=== PATIENT | female | born 1990 | race Caucasian/White ===

== ENCOUNTER 2016-12-05 07:45 | Inpatient (IN) | payer MEDICAID, OTHER ==
[~2016-12-05] VITALS: Ht 160 cm; Wt 53.4 kg
[~2016-12-05 07:45] MED LIST: DIVA250T4 PO; RISP1TAB54 PO; SERT50TA12 PO
[2016-12-05] MEDS ORDERED: HALOPERIDOL 5 MG TABLET PO PRN (08:45)
[2016-12-05] MEDS ORDERED: DiphenhydrAMINE HCL 50 MG/ML VIAL IM ONE (08:45)
[2016-12-05] MEDS ORDERED: LORazepam 2 MG/ML VIAL IM ONE (08:45)
[2016-12-05] MEDS ORDERED: ZOLPIDEM TARTRATE 10 MG TABLET PO PRN (08:45)
[2016-12-05] MEDS ORDERED: LORazepam 2 MG TABLET PO PRN (08:45)
[2016-12-05] MEDS ORDERED: HALOPERIDOL LACTATE 5 MG/ML VIAL IM ONE (08:45)
[2016-12-05 10:03] LABS: BASOPHILS # (AUTO) 0.03 K/uL (0.00-0.20); BASOPHILS % (AUTO) 0.3 % (0.0-2.0); EOSINOPHILS # (AUTO) 0.01 K/uL (0.00-0.70); EOSINOPHILS % (AUTO) 0.09 % (1.0-6.0); HEMATOCRIT 36.8 % (36-46); HEMOGLOBIN 12.6 g/dL (12.0-16.0); LYMPHOCYTES # (AUTO) 1.5 K/uL (1.0-4.8); LYMPHOCYTES % (AUTO) 16.7 % (22.0-44.0); MEAN CORPUSCULAR HEMOGLOBIN 29.9 pg (26.0-34.0); MEAN CORPUSCULAR HGB CONC 34.2 G/dL (31.0-37.0); MEAN CORPUSCULAR VOLUME 87 fL (80-100); MONOCYTES # (AUTO) 0.5 K/uL (0.1-1.0); MONOCYTES % (AUTO) 5.2 % (2.0-9.0); NEUTROPHILS # (AUTO) 7.1 K/uL (1.8-7.7); NEUTROPHILS % (AUTO) 77.7 % (40.0-70.0); PLATELET COUNT (AUTO) 213 K/uL (150-450); RED BLOOD CELL COUNT(AUTO) 4.22 MIL/uL (4.00-5.20); RED CELL DISTRIBUTION WIDTH 12.8 % (11.5-14.5); WHITE BLOOD COUNT (AUTO) 9.1 K/uL (4.5-11.0)
[2016-12-05 10:11] LABS: ANION GAP 10 mmol/L (8-16); CALCIUM, TOTAL 8.6 mg/dL (8.8-10.5); CARBON DIOXIDE 26 mmol/L (22-29); CHLORIDE 107 mmol/L (98-107); CREATININE 0.77 mg/dL (0.60-1.30); GLOMERULAR FILTR. RATE CALC > 60 mL/min (>60); POTASSIUM 3.9 mmol/L (3.5-5.1); SODIUM SERUM 143 mmol/L (136-145); UREA NITROGEN, BLOOD 12 mg/dL (7-18)
[2016-12-05 10:22] LABS: ALANINE AMINOTRANSFERASE 18 U/L (12-78); ALBUMIN 3.7 g/dL (3.4-5.0); ASPARTATE AMINOTRANSFERASE 20 U/L (15-37); BILIRUBIN,TOTAL 0.6 mg/dL (0.1-1.0); TOTAL PROTEIN, SERUM 6.8 g/dL (6.4-8.2)
[2016-12-05 10:41] LABS: VALPROIC ACID < 3 mcg/mL (50-100)
[2016-12-05] MEDS ORDERED: DIVA500T35 PO (14:22)
[2016-12-05 16:00] VITALS: BP 112/71
[2016-12-05] MEDS: RisperiDONE 1 MG TABLET PO SCH (17:00)
[2016-12-05] MEDS: DIVALPROEX SODIUM 500 MG DR TABLET PO SCH (17:00)
[2016-12-06] MEDS: RisperiDONE 1 MG TABLET PO SCH ×2 (13:18→16:15)
[2016-12-06] MEDS: DIVALPROEX SODIUM 500 MG DR TABLET PO SCH ×2 (13:18→16:15)
[2016-12-07] MEDS: RisperiDONE 1 MG TABLET PO SCH ×2 (09:00→16:35)
[2016-12-07] MEDS: DIVALPROEX SODIUM 500 MG DR TABLET PO SCH ×2 (09:00→16:35)
[2016-12-07] MEDS ORDERED: ACETAMINOPHEN 325 MG TABLET PO PRN (14:45)
[2016-12-07] MEDS ORDERED: IBUPROFEN 600 MG TABLET PO PRN (14:45)
[2016-12-08] MEDS: DIVALPROEX SODIUM 500 MG DR TABLET PO SCH (09:00)
[2016-12-08] MEDS: RisperiDONE 1 MG TABLET PO SCH (09:00)
== END 2016-12-08 13:30 | disposition home or self-care (01) | DRG 753 ==
LOC: EMS 07:46 → 3EI 09:51
DX: F31.5 Bipolar disorder, current episode depressed, severe, with psychotic features (principal); R45.851 Suicidal ideations; Z91.19 Patient's noncompliance with other medical treatment and regimen; E66.9 Obesity, unspecified; E78.5 Hyperlipidemia, unspecified; F41.9 Anxiety disorder, unspecified; F15.90 Other stimulant use, unspecified, uncomplicated; F12.90 Cannabis use, unspecified, uncomplicated; F17.200 Nicotine dependence, unspecified, uncomplicated; Z88.0 Allergy status to penicillin; Z79.899 Other long term (current) drug therapy; Z68.20 Body mass index [BMI] 20.0-20.9, adult; Z72.89 Other problems related to lifestyle; Z71.51 Drug abuse counseling and surveillance of drug abuser; Z28.21 Immunization not carried out because of patient refusal
CPT/HCPCS: 96372; 99285; G0480; J1200; J1630; J2060

== ENCOUNTER 2017-01-21 18:55 | Inpatient (IN) | payer MEDICAID, OTHER ==
[~2017-01-21] VITALS: Ht 160 cm; Wt 61.8 kg
[~2017-01-21 18:55] MED LIST changes: -DIVA250T4 PO; +DIVA500T35 PO; -SERT50TA12 PO
[2017-01-21] MEDS ORDERED: DIPH50 PO (19:43)
[2017-01-21] MEDS ORDERED: IBUP-1547 PO (19:43)
[2017-01-21 19:59] LABS: BASOPHILS % (AUTO) 0.2 % (0.0-2.0); EOSINOPHILS % (AUTO) 0.6 % (1.0-6.0); HEMOGLOBIN 11.7 g/dL (12.0-16.0); LYMPHOCYTES # (AUTO) 4.1 K/uL (1.0-4.8); LYMPHOCYTES % (AUTO) 38.9 % (22.0-44.0); MEAN CORPUSCULAR HGB CONC 32.4 G/dL (31.0-37.0); MEAN CORPUSCULAR VOLUME 90 fL (80-100); MONOCYTES # (AUTO) 0.7 K/uL (0.1-1.0); MONOCYTES % (AUTO) 6.6 % (2.0-9.0); NEUTROPHILS # (AUTO) 5.6 K/uL (1.8-7.7); NEUTROPHILS % (AUTO) 53.7 % (40.0-70.0); PLATELET COUNT (AUTO) 257 K/uL (150-450); RED BLOOD CELL COUNT(AUTO) 4.02 MIL/uL (4.00-5.20); RED CELL DISTRIBUTION WIDTH 13.6 % (11.5-14.5); WHITE BLOOD COUNT (AUTO) 10.5 K/uL (4.5-11.0)
[2017-01-21 20:10] LABS: ANION GAP 6 mmol/L (8-16); CALCIUM, TOTAL 9.2 mg/dL (8.8-10.5); CARBON DIOXIDE 30 mmol/L (22-29); CHLORIDE 104 mmol/L (98-107); CREATININE 0.71 mg/dL (0.60-1.30); GLOMERULAR FILTR. RATE CALC > 60 mL/min (>60); POTASSIUM 4.1 mmol/L (3.5-5.1); SODIUM SERUM 140 mmol/L (136-145); UREA NITROGEN, BLOOD 16 mg/dL (7-18)
[2017-01-21 20:16] LABS: ALANINE AMINOTRANSFERASE 23 U/L (12-78); ALBUMIN 3.6 g/dL (3.4-5.0); ASPARTATE AMINOTRANSFERASE 13 U/L (15-37); BILIRUBIN,TOTAL 0.2 mg/dL (0.1-1.0); TOTAL PROTEIN, SERUM 6.8 g/dL (6.4-8.2)
[2017-01-21] MEDS ORDERED: LORazepam 2 MG TABLET PO ONE (21:45)
[2017-01-21] MEDS ORDERED: RisperiDONE 1 MG TABLET PO ONE (21:45)
[2017-01-21] MEDS ORDERED: ZOLPIDEM TARTRATE 10 MG TABLET PO PRN (22:30)
[2017-01-21] MEDS ORDERED: ACETAMINOPHEN 325 MG TABLET PO ONE (22:45)
[2017-01-21 22:51] VITALS: BP 111/74
[2017-01-22 00:45] VITALS: BP 112/78
[2017-01-22 06:11] LABS: APPEARANCE,URINE CLEAR (CLEAR); GLUCOSE, URINE (UA) NEGATIVE (NEGATIVE); KETONES,URINE NEGATIVE (NEGATIVE); LEUKOCYTE ESTERASE ,URINE NEGATIVE (NEGATIVE); OCCULT BLOOD,URINE NEGATIVE (NEGATIVE); PROTEIN,URINE NEGATIVE (NEGATIVE)
[2017-01-22 06:14] LABS: ADD UA MICROSCOPIC NO
[2017-01-22 07:47] LABS: CHOL/HDL RATIO 3.1 (3.9-5.7)
[2017-01-22 09:18] VITALS: BP 100/57
[2017-01-22] MEDS: LORazepam 2 MG TABLET PO PRN (16:16)
[2017-01-22 16:58] VITALS: BP 117/77
[2017-01-22] MEDS: OLANZapine 5 MG TABLET PO SCH (20:38)
[2017-01-23] MEDS: LORazepam 2 MG TABLET PO PRN ×2 (07:51→15:44)
[2017-01-23] MEDS: OLANZapine 5 MG RAPDIS TABLET PO PRN ×2 (07:52→15:44)
[2017-01-23] MEDS: FLUoxetine HCL 20 MG CAPSULE PO SCH (08:10)
[2017-01-23 08:30] VITALS: BP 106/69
[2017-01-23 17:15] VITALS: BP 114/77
[2017-01-23] MEDS: OLANZapine 5 MG TABLET PO SCH (20:23)
[2017-01-24 06:57] VITALS: BP 113/50
[2017-01-24] MEDS: LORazepam 2 MG TABLET PO PRN ×4 (08:04→20:40)
[2017-01-24] MEDS: FLUoxetine HCL 20 MG CAPSULE PO SCH (08:04)
[2017-01-24 08:30] VITALS: BP 109/69
[2017-01-24] MEDS: OLANZapine 5 MG RAPDIS TABLET PO PRN (12:05)
[2017-01-24 16:42] VITALS: BP 102/62
[2017-01-24] MEDS: OLANZapine 10 MG TABLET PO SCH (20:40)
[2017-01-25 08:02] VITALS: BP 101/66
[2017-01-25] MEDS: LORazepam 2 MG TABLET PO PRN ×2 (08:57→14:43)
[2017-01-25] MEDS: OLANZapine 5 MG RAPDIS TABLET PO PRN ×2 (08:58→14:43)
[2017-01-25] MEDS ORDERED: FLUoxetine HCL 20 MG CAPSULE PO SCH (09:00)
[2017-01-25 16:42] VITALS: BP 117/69
[2017-01-25] MEDS ORDERED: IBUPROFEN 600 MG TABLET PO PRN (17:00)
[2017-01-25] MEDS ORDERED: ACETAMINOPHEN 325 MG TABLET PO PRN (17:00)
[2017-01-25 17:28] VITALS: BP 107/75
[2017-01-25 17:32] VITALS: BP 107/75
[2017-01-25] MEDS: OLANZapine 10 MG TABLET PO SCH (20:33)
[2017-01-26 00:43] VITALS: BP 109/78
[2017-01-26 08:00] VITALS: BP 105/57
[2017-01-26] MEDS: FLUoxetine HCL 20 MG CAPSULE PO SCH (09:00)
[2017-01-26] MEDS: LORazepam 2 MG TABLET PO PRN ×2 (09:01→14:18)
[2017-01-26] MEDS: OLANZapine 5 MG RAPDIS TABLET PO PRN (15:40)
[2017-01-26 17:08] VITALS: BP 121/68
[2017-01-26] MEDS: OLANZapine 10 MG TABLET PO SCH (21:07)
[2017-01-27] MEDS: HydrOXYzine PAMOATE 25 MG CAPSULE PO PRN ×3 (03:09→16:04)
[2017-01-27 08:18] VITALS: BP 103/64
[2017-01-27] MEDS: OLANZapine 5 MG RAPDIS TABLET PO PRN ×2 (09:16→16:04)
[2017-01-27] MEDS: FLUoxetine HCL 20 MG CAPSULE PO SCH (09:16)
[2017-01-27 17:02] VITALS: BP 107/73
[2017-01-27] MEDS ORDERED: OLANZapine 7.5 MG TABLET PO SCH (21:00)
[2017-01-28 06:42] VITALS: BP 112/74
[2017-01-28 08:43] VITALS: BP 112/55
[2017-01-28] MEDS: HydrOXYzine PAMOATE 25 MG CAPSULE PO PRN ×2 (09:26→16:11)
[2017-01-28] MEDS: FLUoxetine HCL 20 MG CAPSULE PO SCH (09:26)
[2017-01-28] MEDS: OLANZapine 5 MG RAPDIS TABLET PO PRN ×2 (09:26→16:12)
[2017-01-28 17:00] VITALS: BP 107/62
[2017-01-28] MEDS: OLANZapine 10 MG TABLET PO SCH (20:40)
[2017-01-29 08:01] VITALS: BP 108/67
[2017-01-29] MEDS: OLANZapine 5 MG RAPDIS TABLET PO PRN ×3 (08:13→17:15)
[2017-01-29] MEDS: FLUoxetine HCL 20 MG CAPSULE PO SCH (08:13)
[2017-01-29] MEDS: HydrOXYzine PAMOATE 25 MG CAPSULE PO PRN ×3 (09:07→17:15)
[2017-01-29 19:30] VITALS: BP 120/74
[2017-01-29] MEDS: OLANZapine 10 MG TABLET PO SCH (21:18)
[2017-01-30] MEDS: HydrOXYzine PAMOATE 25 MG CAPSULE PO PRN (07:45)
[2017-01-30] MEDS: OLANZapine 5 MG RAPDIS TABLET PO PRN (07:45)
[2017-01-30 08:00] VITALS: BP 122/71
[2017-01-30] MEDS: FLUoxetine HCL 20 MG CAPSULE PO SCH (08:06)
[2017-01-30] MEDS ORDERED: OLAN10TA3 PO (10:07)
[2017-01-30] MEDS ORDERED: FLUO-191 PO (10:07)
== END 2017-01-30 11:15 | disposition home or self-care (01) | DRG 751 ==
LOC: EMS 19:07 → 3EI 22:30
PROVIDERS: ADMIT Psychiatry & Neurology Psychiatry; ATTEND Psychiatry & Neurology Psychiatry
DX: F32.2 Major depressive disorder, single episode, severe without psychotic features (principal); R45.851 Suicidal ideations; F15.20 Other stimulant dependence, uncomplicated; Z59.0 Homelessness; F60.3 Borderline personality disorder; Z88.0 Allergy status to penicillin; Z88.8 Allergy status to other drugs, medicaments and biological substances
CPT/HCPCS: 86592; 99285; G0480

== ENCOUNTER 2017-05-20 17:51 | Emergency (ER) | payer MEDICAID, OTHER ==
[~2017-05-20] VITALS: Ht 162.6 cm; Wt 54.5 kg
[~2017-05-20 17:51] MED LIST changes: -DIVA500T35 PO; +FLUO-191 PO; +OLAN10TA3 PO; -RISP1TAB54 PO
[2017-05-20 18:36] LABS: BASOPHILS % (AUTO) 0.5 % (0.0-2.0); EOSINOPHILS % (AUTO) 0.2 % (1.0-6.0); HEMATOCRIT 34.2 % (36-46); HEMOGLOBIN 11.8 g/dL (12.0-16.0); LYMPHOCYTES # (AUTO) 3.8 K/uL (1.0-4.8); LYMPHOCYTES % (AUTO) 43.5 % (22.0-44.0); MEAN CORPUSCULAR HEMOGLOBIN 30.2 pg (26.0-34.0); MEAN CORPUSCULAR HGB CONC 34.5 G/dL (31.0-37.0); MEAN CORPUSCULAR VOLUME 87 fL (80-100); MONOCYTES # (AUTO) 0.9 K/uL (0.1-1.0); MONOCYTES % (AUTO) 10.4 % (2.0-9.0); NEUTROPHILS # (AUTO) 3.9 K/uL (1.8-7.7); NEUTROPHILS % (AUTO) 45.4 % (40.0-70.0); PLATELET COUNT (AUTO) 257 K/uL (150-450); RED BLOOD CELL COUNT(AUTO) 3.91 MIL/uL (4.00-5.20); WHITE BLOOD COUNT (AUTO) 8.6 K/uL (4.5-11.0)
[2017-05-20 18:45] LABS: ANION GAP 13 mmol/L (8-16); CALCIUM, TOTAL 8.7 mg/dL (8.8-10.5); CARBON DIOXIDE 25 mmol/L (22-29); CHLORIDE 104 mmol/L (98-107); CREATININE 1.04 mg/dL (0.60-1.30); GLOMERULAR FILTR. RATE CALC > 60 mL/min (>60); POTASSIUM 3.9 mmol/L (3.5-5.1); SODIUM SERUM 142 mmol/L (136-145); UREA NITROGEN, BLOOD 16 mg/dL (7-18)
[2017-05-20 18:50] LABS: ALANINE AMINOTRANSFERASE 19 U/L (12-78); ALBUMIN 4.1 g/dL (3.4-5.0); ASPARTATE AMINOTRANSFERASE 23 U/L (15-37); BILIRUBIN,TOTAL 0.7 mg/dL (0.1-1.0); TOTAL PROTEIN, SERUM 7.3 g/dL (6.4-8.2)
[2017-05-20 19:51] VITALS: BP 122/78
== END 2017-05-20 19:52 | disposition home or self-care (01) ==
LOC: EMS 17:53
DX: F31.9 Bipolar disorder, unspecified (principal); F15.10 Other stimulant abuse, uncomplicated; F17.210 Nicotine dependence, cigarettes, uncomplicated; Z59.0 Homelessness; Z88.0 Allergy status to penicillin; Z88.8 Allergy status to other drugs, medicaments and biological substances
CPT/HCPCS: 36415; 80053; 80307; 84703; 85025; 99285; 99406; G0480

== ENCOUNTER 2019-03-24 13:52 | Emergency (ER) | payer SELFPAY ==
[~2019-03-24] VITALS: Ht 162.6 cm; Wt 50.0 kg
[2019-03-24 14:07] VITALS: BP 101/40
== END 2019-03-24 16:34 | disposition left against medical advice (07) ==
LOC: EMS 13:53
DX: F99 Mental disorder, not otherwise specified (principal); Z53.21 Procedure and treatment not carried out due to patient leaving prior to being seen by health care provider

== ENCOUNTER 2019-03-24 17:46 | Emergency (ER) | payer SELFPAY ==
[~2019-03-24] VITALS: Ht 165.1 cm; Wt 54.5 kg
[2019-03-24 20:18] LABS: APPEARANCE,URINE CLOUDY (CLEAR); BILIRUBIN,URINE PRELIM. POSITIVE (NEGATIVE); GLUCOSE, URINE (UA) NEGATIVE (NEGATIVE); KETONES,URINE TRACE mg/dL (NEGATIVE); LEUKOCYTE ESTERASE ,URINE NEGATIVE (NEGATIVE); NITRATE,URINE NEGATIVE (NEGATIVE); OCCULT BLOOD,URINE NEGATIVE (NEGATIVE); PH,URINE 5.5 (5.0-8.0); PROTEIN,URINE POS 1+ (NEGATIVE); UROBILINOGEN,URINE 0.2 mg/dL (<=1.0)
[2019-03-24 22:37] VITALS: BP 128/76
== END 2019-03-25 01:00 | disposition home or self-care (01) ==
LOC: EMS 17:48
DX: F15.10 Other stimulant abuse, uncomplicated (principal); F12.90 Cannabis use, unspecified, uncomplicated; F17.210 Nicotine dependence, cigarettes, uncomplicated; F31.9 Bipolar disorder, unspecified; Z88.0 Allergy status to penicillin; Z88.8 Allergy status to other drugs, medicaments and biological substances; Z59.0 Homelessness

== ENCOUNTER 2020-05-23 13:15 | Inpatient (IN) | payer MEDICAID ==
[~2020-05-23] VITALS: Ht 162.6 cm; Wt 74.4 kg
[2020-05-23 16:19] LABS: BASOPHILS % (AUTO) 0.6 % (0.0-2.0); HEMATOCRIT 37.9 % (36-46); HEMOGLOBIN 12.6 g/dL (12.0-16.0); LYMPHOCYTES # (AUTO) 2.3 K/uL (1.0-4.8); LYMPHOCYTES % (AUTO) 38.3 % (22.0-44.0); MEAN CORPUSCULAR HGB CONC 33.3 G/dL (31.0-37.0); MEAN CORPUSCULAR VOLUME 90 fL (80-100); MONOCYTES # (AUTO) 0.5 K/uL (0.1-1.0); MONOCYTES % (AUTO) 9.2 % (2.0-9.0); NEUTROPHILS % (AUTO) 50.9 % (40.0-70.0); PLATELET COUNT (AUTO) 253 K/uL (150-450); RED BLOOD CELL COUNT(AUTO) 4.21 MIL/uL (4.00-5.20); RED CELL DISTRIBUTION WIDTH 12.8 % (11.5-14.5)
[2020-05-23 16:34] LABS: ANION GAP 3 mmol/L (8-16); CALCIUM, TOTAL 9.1 mg/dL (8.8-10.5); CARBON DIOXIDE 31 mmol/L (22-29); CHLORIDE 101 mmol/L (98-107); CREATININE 0.91 mg/dL (0.60-1.30); GLOMERULAR FILTR. RATE CALC > 60 mL/min (>60); GLUCOSE,RANDOM 104 mg/dL (70-110); POTASSIUM 3.9 mmol/L (3.5-5.1); SODIUM SERUM 135 mmol/L (136-145); UREA NITROGEN, BLOOD 10 mg/dL (7-18)
[2020-05-23 16:42] LABS: ALANINE AMINOTRANSFERASE 19 U/L (12-78); ALBUMIN 3.5 g/dL (3.4-5.0); ALKALINE PHOSPHATASE 49 U/L (46-116); ASPARTATE AMINOTRANSFERASE 13 U/L (15-37); BILIRUBIN,TOTAL 0.2 mg/dL (0.1-1.0)
[2020-05-23] MEDS ORDERED: ACETAMINOPHEN 325 MG TABLET PO ONE (16:45)
[2020-05-23] MEDS ORDERED: LORazepam 1 MG TABLET PO ONE (18:00)
[2020-05-23] MEDS ORDERED: HALOPERIDOL 5 MG TABLET PO PRN (19:30)
[2020-05-24 03:01] VITALS: BP 99/70
[2020-05-24] MEDS: LORazepam 2 MG TABLET PO PRN ×3 (03:29→15:52)
[2020-05-24] MEDS ORDERED: CloNIDine HCL 0.1 MG TABLET PO PRN (08:15)
[2020-05-24] MEDS ORDERED: IBUPROFEN 600 MG TABLET PO PRN (08:15)
[2020-05-24] MEDS ORDERED: MAG HYDROX/AL HYDROX/SIMETH ES 30 ML SUSPENSION UDCUP PO PRN (08:15)
[2020-05-24] MEDS ORDERED: BENZOCAINE/MENTHOL LOZENGE PO PRN (08:15)
[2020-05-24] MEDS ORDERED: LOPERAMIDE HCL 2 MG CAPSULE PO PRN (08:15)
[2020-05-24] MEDS ORDERED: OMEPRAZOLE 20 MG CAPSULE PO PRN (08:15)
[2020-05-24] MEDS ORDERED: DOCUSATE SODIUM 100 MG CAPSULE PO PRN (08:15)
[2020-05-24] MEDS ORDERED: MAGNESIUM HYDROXIDE SUSPENSION 30 ML UDCUP PO PRN (08:15)
[2020-05-24] MEDS ORDERED: ALBUTEROL SULFATE HFA 90 MCG/PUFF 8 GM INHALER IH PRN (08:15)
[2020-05-24] MEDS ORDERED: PETROLATUM,WHITE 28 GM JELLY TP PRN (08:15)
[2020-05-24] MEDS ORDERED: ACETAMINOPHEN 325 MG TABLET PO PRN (08:15)
[2020-05-24] MEDS ORDERED: ONDANSETRON HCL 4 MG TABLET PO PRN (08:15)
[2020-05-24] MEDS ORDERED: BACITRACIN 28 GM OINTMENT TP PRN (08:15)
[2020-05-24 08:35] LABS: CHOL/HDL RATIO 3.2 (3.9-5.7)
[2020-05-24 16:09] VITALS: BP 104/61
[2020-05-24] MEDS: RisperiDONE 3 MG TABLET PO SCH (17:00)
[2020-05-24] MEDS: DIVALPROEX SODIUM 500 MG DR TABLET PO SCH (17:00)
[2020-05-25 07:05] VITALS: BP 106/62
[2020-05-25 08:13] VITALS: BP 100/77
[2020-05-25] MEDS: DIVALPROEX SODIUM 500 MG DR TABLET PO SCH ×2 (08:29→16:14)
[2020-05-25] MEDS: RisperiDONE 3 MG TABLET PO SCH ×3 (08:30→16:14)
[2020-05-25] MEDS: LORazepam 2 MG TABLET PO PRN (08:31)
[2020-05-25 16:06] VITALS: BP 112/62
[2020-05-25] MEDS: ZOLPIDEM TARTRATE 10 MG TABLET PO PRN (20:22)
[2020-05-26] MEDS: DIVALPROEX SODIUM 500 MG DR TABLET PO SCH ×2 (08:32→15:56)
[2020-05-26] MEDS: RisperiDONE 3 MG TABLET PO SCH ×3 (08:32→15:56)
[2020-05-26] MEDS: LORazepam 2 MG TABLET PO PRN (08:32)
[2020-05-26 17:00] VITALS: BP 117/75
[2020-05-26] MEDS: ZOLPIDEM TARTRATE 10 MG TABLET PO PRN (20:40)
[2020-05-27 01:00] VITALS: BP 110/72
[2020-05-27 08:28] VITALS: BP 114/68
[2020-05-27] MEDS: DIVALPROEX SODIUM 500 MG DR TABLET PO SCH ×2 (08:29→16:18)
[2020-05-27] MEDS: RisperiDONE 3 MG TABLET PO SCH ×3 (08:29→16:18)
[2020-05-27] MEDS: LORazepam 2 MG TABLET PO PRN (08:30)
[2020-05-27 16:10] VITALS: BP 109/68
[2020-05-27] MEDS: ZOLPIDEM TARTRATE 10 MG TABLET PO PRN (20:05)
[2020-05-28 08:11] VITALS: BP 116/68
[2020-05-28] MEDS: RisperiDONE 3 MG TABLET PO SCH ×2 (08:50→12:35)
[2020-05-28] MEDS: DIVALPROEX SODIUM 500 MG DR TABLET PO SCH (08:50)
[2020-05-28] MEDS: LORazepam 2 MG TABLET PO PRN (08:50)
[2020-05-28] MEDS ORDERED: DIVA-112 PO (11:07)
[2020-05-28] MEDS ORDERED: RISP3TAB14 PO (11:07)
== END 2020-05-28 12:40 | disposition home or self-care (01) | DRG 750 ==
LOC: EMS 13:22 → B3A 19:25
PROVIDERS: ADMIT Psychiatry & Neurology Psychiatry; ATTEND Psychiatry & Neurology Psychiatry
DX: F25.9 Schizoaffective disorder, unspecified (principal); R45.851 Suicidal ideations; F41.9 Anxiety disorder, unspecified; G47.00 Insomnia, unspecified; K59.00 Constipation, unspecified; F19.10 Other psychoactive substance abuse, uncomplicated; F17.210 Nicotine dependence, cigarettes, uncomplicated; Z59.0 Homelessness; Z88.0 Allergy status to penicillin; Z88.8 Allergy status to other drugs, medicaments and biological substances
CPT/HCPCS: 87081; 87426; G0480

== ENCOUNTER 2021-03-03 10:14 | Inpatient (IN) | payer MEDICAID, OTHER ==
[~2021-03-03] VITALS: Ht 170.2 cm; Wt 77.6 kg
[~2021-03-03 10:14] MED LIST changes: +DIVA-112 PO; -FLUO-191 PO; -OLAN10TA3 PO; +RISP3TAB35 PO
[2021-03-03] MEDS ORDERED: OLAN5TAB52 PO (10:17)
[2021-03-03] MEDS ORDERED: TRAZ-257 PO (10:17)
[2021-03-03] MEDS ORDERED: OLAN10TA74 PO (10:17)
[2021-03-03] MEDS ORDERED: LAMO25TA25 PO (10:17)
[2021-03-03] MEDS ORDERED: QUET25TA PO (10:17)
[2021-03-03] MEDS ORDERED: HALOPERIDOL LACTATE 5 MG/ML VIAL IM ONE (10:30)
[2021-03-03] MEDS ORDERED: DiphenhydrAMINE HCL 50 MG/ML VIAL IM ONE (10:30)
[2021-03-03] MEDS ORDERED: LORazepam 2 MG/ML VIAL IM ONE (10:30)
[2021-03-03 10:40] LABS: BASOPHILS % (AUTO) 0.3 % (0.0-2.0); EOSINOPHILS % (AUTO) 1.8 % (1.0-6.0); HEMOGLOBIN 12.2 g/dL (12.0-16.0); LYMPHOCYTES # (AUTO) 1.8 K/uL (1.0-4.8); LYMPHOCYTES % (AUTO) 19.5 % (22.0-44.0); MEAN CORPUSCULAR HEMOGLOBIN 29.1 pg (26.0-34.0); MEAN CORPUSCULAR HGB CONC 32.9 G/dL (31.0-37.0); MEAN CORPUSCULAR VOLUME 88 fL (80-100); MONOCYTES # (AUTO) 0.7 K/uL (0.1-1.0); MONOCYTES % (AUTO) 7.5 % (2.0-9.0); NEUTROPHILS # (AUTO) 6.7 K/uL (1.8-7.7); NEUTROPHILS % (AUTO) 70.9 % (40.0-70.0); PLATELET COUNT (AUTO) 246 K/uL (150-450); RED BLOOD CELL COUNT(AUTO) 4.19 MIL/uL (4.00-5.20)
[2021-03-03 10:52] LABS: ANION GAP 5 mmol/L (8-16); CALCIUM, TOTAL 8.6 mg/dL (8.8-10.5); CARBON DIOXIDE 28 mmol/L (22-29); CHLORIDE 101 mmol/L (98-107); CREATININE 0.72 mg/dL (0.60-1.30); GLOMERULAR FILTR. RATE CALC > 60 mL/min (>60); GLUCOSE,RANDOM 99 mg/dL (70-110); SODIUM SERUM 134 mmol/L (136-145); UREA NITROGEN, BLOOD 7 mg/dL (7-18)
[2021-03-03 10:57] LABS: ALANINE AMINOTRANSFERASE 20 U/L (12-78); ALBUMIN 3.5 g/dL (3.4-5.0); ALKALINE PHOSPHATASE 58 U/L (46-116); ASPARTATE AMINOTRANSFERASE 15 U/L (15-37); BILIRUBIN,TOTAL 0.2 mg/dL (0.1-1.0); TOTAL PROTEIN, SERUM 6.7 g/dL (6.4-8.2)
[2021-03-03 13:15] LABS: COVID AG,FIA SOURCE NASOPHARYNGEAL
[2021-03-03 19:30] VITALS: BP 127/84
[2021-03-04] MEDS ORDERED: GuaiFENesin/D-METHORPHAN [SUGAR-FREE] 200-20MG/10 ML SYRUP UDCUP PO PRN (08:00)
[2021-03-04] MEDS ORDERED: NICOTINE 14 MG/24 HOUR PATCH TD PRN (08:00)
[2021-03-04] MEDS ORDERED: MAGNESIUM HYDROXIDE SUSPENSION 30 ML UDCUP PO PRN (08:00)
[2021-03-04] MEDS ORDERED: DOCUSATE SODIUM 100 MG CAPSULE PO PRN (08:00)
[2021-03-04] MEDS ORDERED: ONDANSETRON HCL 4 MG TABLET PO PRN (08:00)
[2021-03-04] MEDS ORDERED: MAG HYDROX/AL HYDROX/SIMETH ES 30 ML SUSPENSION UDCUP PO PRN (08:00)
[2021-03-04] MEDS ORDERED: ACETAMINOPHEN 325 MG TABLET PO PRN (08:00)
[2021-03-04] MEDS ORDERED: LOPERAMIDE HCL 2 MG CAPSULE PO PRN (08:00)
[2021-03-04] MEDS ORDERED: PETROLATUM,WHITE 28 GM JELLY TP PRN (08:00)
[2021-03-04] MEDS ORDERED: CloNIDine HCL 0.1 MG TABLET PO PRN (08:00)
[2021-03-04] MEDS ORDERED: ALBUTEROL SULFATE HFA 90 MCG/PUFF 8 GM INHALER IH PRN (08:00)
[2021-03-04] MEDS: LORazepam 2 MG TABLET PO PRN ×2 (10:44→18:27)
[2021-03-04] MEDS: OLANZapine 10 MG TABLET PO SCH ×2 (13:00→20:19)
[2021-03-04 16:32] VITALS: BP 127/92
[2021-03-04] MEDS: HALOPERIDOL 5 MG TABLET PO PRN (18:27)
[2021-03-04] MEDS: TraZODone HCL 100 MG TABLET PO SCH (20:18)
[2021-03-05 04:44] VITALS: BP 132/90
[2021-03-05] MEDS: LORazepam 2 MG TABLET PO PRN ×2 (04:46→10:04)
[2021-03-05 09:00] VITALS: BP 118/88
[2021-03-05] MEDS: OLANZapine 10 MG TABLET PO SCH ×2 (10:04→20:19)
[2021-03-05] MEDS: TraZODone HCL 100 MG TABLET PO SCH (20:19)
[2021-03-06 08:17] VITALS: BP 120/66
[2021-03-06] MEDS: OLANZapine 10 MG TABLET PO SCH ×2 (08:38→20:11)
[2021-03-06] MEDS: LORazepam 2 MG TABLET PO PRN (08:42)
[2021-03-06] MEDS: IBUPROFEN 400 MG TABLET PO PRN ×2 (10:39→20:30)
[2021-03-06] MEDS: TraZODone HCL 100 MG TABLET PO SCH (20:11)
[2021-03-07] MEDS: OLANZapine 10 MG TABLET PO SCH ×2 (08:28→20:29)
[2021-03-07] MEDS: LORazepam 2 MG TABLET PO PRN (08:28)
[2021-03-07 16:32] VITALS: BP 108/70
[2021-03-07] MEDS: TraZODone HCL 100 MG TABLET PO SCH (20:29)
[2021-03-08] MEDS: LORazepam 2 MG TABLET PO PRN (08:13)
[2021-03-08] MEDS: OLANZapine 10 MG TABLET PO SCH ×2 (08:13→20:19)
[2021-03-08 08:35] VITALS: BP 109/60
[2021-03-08 16:12] VITALS: BP 115/70
[2021-03-08] MEDS: DIVALPROEX SODIUM 500 MG DR TABLET PO SCH (20:19)
[2021-03-08] MEDS: TraZODone HCL 100 MG TABLET PO SCH (20:20)
[2021-03-09 08:12] VITALS: BP 119/76
[2021-03-09] MEDS: OLANZapine 10 MG TABLET PO SCH ×2 (08:45→20:35)
[2021-03-09] MEDS: LORazepam 2 MG TABLET PO PRN (08:45)
[2021-03-09] MEDS: DIVALPROEX SODIUM 500 MG DR TABLET PO SCH ×2 (08:45→20:35)
[2021-03-09] MEDS: TraZODone HCL 100 MG TABLET PO SCH (20:35)
[2021-03-10] MEDS: OLANZapine 10 MG TABLET PO SCH ×2 (08:43→20:26)
[2021-03-10] MEDS: MULTIVITAMINS WITH MINERALS, THERAPEUTIC TABLET PO SCH (08:43)
[2021-03-10] MEDS: DIVALPROEX SODIUM 500 MG DR TABLET PO SCH ×2 (08:44→20:26)
[2021-03-10] MEDS: LORazepam 2 MG TABLET PO PRN (08:44)
[2021-03-10] MEDS: TraZODone HCL 100 MG TABLET PO SCH (20:26)
[2021-03-10] MEDS: ZOLPIDEM TARTRATE 10 MG TABLET PO PRN (20:31)
[2021-03-11] MEDS: LORazepam 2 MG TABLET PO PRN (08:13)
[2021-03-11] MEDS: OLANZapine 10 MG TABLET PO SCH ×2 (08:13→20:05)
[2021-03-11] MEDS: MULTIVITAMINS WITH MINERALS, THERAPEUTIC TABLET PO SCH (08:13)
[2021-03-11] MEDS: DIVALPROEX SODIUM 500 MG DR TABLET PO SCH ×2 (08:13→20:05)
[2021-03-11] MEDS: TraZODone HCL 100 MG TABLET PO SCH (20:05)
[2021-03-11] MEDS: ZOLPIDEM TARTRATE 10 MG TABLET PO PRN (20:05)
[2021-03-12 01:44] VITALS: BP 132/76
[2021-03-12] MEDS: DIVALPROEX SODIUM 500 MG DR TABLET PO SCH ×2 (08:35→20:05)
[2021-03-12] MEDS: LORazepam 2 MG TABLET PO PRN ×2 (08:36→18:06)
[2021-03-12] MEDS: OLANZapine 10 MG TABLET PO SCH ×2 (08:36→20:05)
[2021-03-12] MEDS: MULTIVITAMINS WITH MINERALS, THERAPEUTIC TABLET PO SCH (08:36)
[2021-03-12 08:38] VITALS: BP 118/66
[2021-03-12 16:07] VITALS: BP 112/79
[2021-03-12] MEDS: TraZODone HCL 100 MG TABLET PO SCH (20:05)
[2021-03-13 01:44] VITALS: BP 113/72
[2021-03-13] MEDS: DIVALPROEX SODIUM 500 MG DR TABLET PO SCH ×2 (08:59→21:21)
[2021-03-13] MEDS: MULTIVITAMINS WITH MINERALS, THERAPEUTIC TABLET PO SCH (09:00)
[2021-03-13] MEDS: OLANZapine 10 MG TABLET PO SCH ×2 (09:00→21:21)
[2021-03-13] MEDS: LORazepam 2 MG TABLET PO PRN (15:11)
[2021-03-13 16:14] VITALS: BP 111/79
[2021-03-13] MEDS: TraZODone HCL 100 MG TABLET PO SCH (21:21)
[2021-03-14] MEDS: DIVALPROEX SODIUM 500 MG DR TABLET PO SCH ×2 (08:47→20:09)
[2021-03-14] MEDS: OLANZapine 10 MG TABLET PO SCH ×2 (08:47→20:09)
[2021-03-14] MEDS: LORazepam 2 MG TABLET PO PRN (08:47)
[2021-03-14] MEDS: MULTIVITAMINS WITH MINERALS, THERAPEUTIC TABLET PO SCH (08:47)
[2021-03-14] MEDS: TraZODone HCL 100 MG TABLET PO SCH (20:09)
[2021-03-15 08:10] VITALS: BP 102/64
[2021-03-15] MEDS: DIVALPROEX SODIUM 500 MG DR TABLET PO SCH ×2 (08:34→20:09)
[2021-03-15] MEDS: LORazepam 2 MG TABLET PO PRN ×2 (08:34→16:36)
[2021-03-15] MEDS: OLANZapine 10 MG TABLET PO SCH ×2 (08:34→20:09)
[2021-03-15] MEDS: MULTIVITAMINS WITH MINERALS, THERAPEUTIC TABLET PO SCH (08:34)
[2021-03-15] MEDS: TraZODone HCL 100 MG TABLET PO SCH (20:09)
[2021-03-16 08:10] VITALS: BP 112/73
[2021-03-16] MEDS: LORazepam 2 MG TABLET PO PRN ×2 (08:10→16:04)
[2021-03-16] MEDS: OLANZapine 10 MG TABLET PO SCH ×2 (08:10→20:19)
[2021-03-16] MEDS: DIVALPROEX SODIUM 500 MG DR TABLET PO SCH ×2 (08:10→20:19)
[2021-03-16] MEDS: MULTIVITAMINS WITH MINERALS, THERAPEUTIC TABLET PO SCH (08:10)
[2021-03-16 16:22] VITALS: BP 110/73
[2021-03-16] MEDS: TraZODone HCL 100 MG TABLET PO SCH (20:19)
[2021-03-17] MEDS: DIVALPROEX SODIUM 500 MG DR TABLET PO SCH ×2 (08:06→20:11)
[2021-03-17] MEDS: OLANZapine 10 MG TABLET PO SCH ×2 (08:07→20:11)
[2021-03-17] MEDS: MULTIVITAMINS WITH MINERALS, THERAPEUTIC TABLET PO SCH (08:07)
[2021-03-17 08:20] VITALS: BP 120/79
[2021-03-17] MEDS: LORazepam 2 MG TABLET PO PRN (16:28)
[2021-03-17 16:33] VITALS: BP 130/60
[2021-03-17] MEDS: TraZODone HCL 100 MG TABLET PO SCH (20:11)
[2021-03-18 06:02] VITALS: BP 126/70
[2021-03-18 08:06] VITALS: BP 110/65
[2021-03-18] MEDS: OLANZapine 10 MG TABLET PO SCH ×2 (08:25→20:40)
[2021-03-18] MEDS: DIVALPROEX SODIUM 500 MG DR TABLET PO SCH ×2 (08:25→20:40)
[2021-03-18] MEDS: MULTIVITAMINS WITH MINERALS, THERAPEUTIC TABLET PO SCH (08:25)
[2021-03-18] MEDS: LORazepam 2 MG TABLET PO PRN (15:52)
[2021-03-18 16:28] VITALS: BP 116/78
[2021-03-18 17:51] LABS: COVID AG,FIA SOURCE NASOPHARYNGEAL
[2021-03-18] MEDS: TraZODone HCL 100 MG TABLET PO SCH (20:40)
[2021-03-18] MEDS: ZOLPIDEM TARTRATE 10 MG TABLET PO PRN (20:40)
[2021-03-19 05:49] VITALS: BP 124/70
[2021-03-19] MEDS: DIVALPROEX SODIUM 500 MG DR TABLET PO SCH ×2 (08:04→20:33)
[2021-03-19] MEDS: MULTIVITAMINS WITH MINERALS, THERAPEUTIC TABLET PO SCH (08:04)
[2021-03-19] MEDS: OLANZapine 10 MG TABLET PO SCH ×2 (08:04→20:34)
[2021-03-19 09:05] VITALS: BP 108/76
[2021-03-19] MEDS: LORazepam 2 MG TABLET PO PRN (12:32)
[2021-03-19] MEDS: IBUPROFEN 400 MG TABLET PO PRN (15:27)
[2021-03-19 16:09] VITALS: BP 113/74
[2021-03-19] MEDS: TraZODone HCL 100 MG TABLET PO SCH (20:34)
[2021-03-20 05:58] VITALS: BP 116/78
[2021-03-20] MEDS: MULTIVITAMINS WITH MINERALS, THERAPEUTIC TABLET PO SCH (08:10)
[2021-03-20] MEDS: OLANZapine 10 MG TABLET PO SCH ×2 (08:10→21:12)
[2021-03-20] MEDS: DIVALPROEX SODIUM 500 MG DR TABLET PO SCH ×2 (08:11→21:12)
[2021-03-20 08:14] VITALS: BP 126/79
[2021-03-20 09:50] LABS: ANION GAP 4 mmol/L (8-16); CALCIUM, TOTAL 8.5 mg/dL (8.8-10.5); CARBON DIOXIDE 31 mmol/L (22-29); CHLORIDE 102 mmol/L (98-107); CREATININE 0.68 mg/dL (0.60-1.30); GLOMERULAR FILTR. RATE CALC > 60 mL/min (>60); GLUCOSE,RANDOM 103 mg/dL (70-110); SODIUM SERUM 137 mmol/L (136-145); UREA NITROGEN, BLOOD 17 mg/dL (7-18)
[2021-03-20] MEDS: LORazepam 2 MG TABLET PO PRN (10:19)
[2021-03-20] MEDS: HALOPERIDOL 5 MG TABLET PO PRN (10:19)
[2021-03-20] MEDS: TraZODone HCL 100 MG TABLET PO SCH (21:12)
[2021-03-21 01:02] VITALS: BP 124/81
[2021-03-21] MEDS: LORazepam 2 MG TABLET PO PRN (08:15)
[2021-03-21] MEDS: OLANZapine 10 MG TABLET PO SCH (08:15)
[2021-03-21] MEDS: MULTIVITAMINS WITH MINERALS, THERAPEUTIC TABLET PO SCH (08:15)
[2021-03-21] MEDS: DIVALPROEX SODIUM 500 MG DR TABLET PO SCH (08:15)
[2021-03-21] MEDS ORDERED: OLAN10TA74 PO (12:05)
[2021-03-21] MEDS ORDERED: DIVA-112 PO (12:05)
== END 2021-03-21 13:48 | disposition home or self-care (01) | DRG 750 ==
LOC: EMS 11:36 → B3A 16:38
DX: F25.0 Schizoaffective disorder, bipolar type (principal); E87.1 Hypo-osmolality and hyponatremia; F17.200 Nicotine dependence, unspecified, uncomplicated; F41.1 Generalized anxiety disorder; F10.10 Alcohol abuse, uncomplicated; Z59.0 Homelessness; Z79.899 Other long term (current) drug therapy; F12.90 Cannabis use, unspecified, uncomplicated; Z20.822 Contact with and (suspected) exposure to COVID-19
CPT/HCPCS: 80048; 80053; 80164; 84702; 85025; 99291; G0480; J1200; J1630; J2060